=== PATIENT | female | born 1995 | race Caucasian/White ===

== ENCOUNTER 2020-07-13 21:11 | Emergency (ER) | payer MEDICAID ==
[~2020-07-13] VITALS: Ht 162.6 cm; Wt 62.0 kg
[2020-07-13] MEDS ORDERED: MORPHINE SULFATE 4 MG/ML CPJ (NOT FOR IM USE) IV STA (21:48)
[2020-07-13] MEDS ORDERED: ONDANSETRON HCL 4MG/2ML INJ IV STA (21:48)
[2020-07-13] MEDS ORDERED: TETANUS, DIPHTHERIA, PERTUSSIS VAC/PF 0.5ML (>7YR OLD) IM ONE (22:00)
[2020-07-13] MEDS ORDERED: AMPICILLIN SOD/SULBACTAM NA 3 G in SODIUM CHLORIDE 0.9% 100 ML IV SCH (22:00)
[2020-07-13] MEDS ORDERED: SODIUM CHLORIDE 0.9% 1,000 ML IV ONE (22:00)
[2020-07-13] MEDS ORDERED: AMOX1TAB16 MT (23:25)
[2020-07-13 23:31] VITALS: BP 120/83
== END 2020-07-14 | disposition home or self-care (01) ==
LOC: ER 21:11
DX: S08.0XXA Avulsion of scalp, initial encounter (principal); X58.XXXA Exposure to other specified factors, initial encounter; Y93.89 Activity, other specified; Y92.89 Other specified places as the place of occurrence of the external cause; Y99.8 Other external cause status
CPT/HCPCS: 90471; 90715; 96365; 96375; 99284; J0295; J2270; J2405; J7030; J7050

== ENCOUNTER 2023-02-26 18:52 | Emergency (ER) | payer MEDICAID ==
[~2023-02-26] VITALS: Ht 162.6 cm; Wt 66.4 kg
[~2023-02-26 18:52] MED LIST: AMOX1TAB16 MT
[2023-02-26 19:40] VITALS: BP 140/107; PULSE 115; RESP 15; TEMP 98.6; O2SAT 100
[2023-02-26] MEDS ORDERED: IBUP-2028 MT (21:08)
[2023-02-26] MEDS ORDERED: TOPUD MT (21:09)
== END 2023-02-26 21:44 | disposition home or self-care (01) ==
LOC: ER 18:52
DX: S09.90XA Unspecified injury of head, initial encounter (principal); K21.9 Gastro-esophageal reflux disease without esophagitis; R58 Hemorrhage, not elsewhere classified; X58.XXXA Exposure to other specified factors, initial encounter; Y93.89 Activity, other specified; Y92.89 Other specified places as the place of occurrence of the external cause; Y99.8 Other external cause status
CPT/HCPCS: 99281